=== PATIENT | male | born 1950 | race Caucasian/White ===

== ENCOUNTER → 2016-08-05 | Outpatient (CLI) | payer OTHER, BC ==
[~2016-08-05] MED LIST: ASPEC325 PO; CRD4 PO
[2016-08-05 17:42] LABS: BASO % 0.7 %; BASO ABS # 0.03 K/uL (0-0.2); COMPLETE YES; EOS % 0.9 %; HEMATOCRIT 39.5 % (42-52); IG% 0.2 %; LYMPH % 32.7 %; LYMPH ABS # 1.43 K/uL (1.2-3.4); MEAN CORPUSCULAR HEMOGLOBIN 31.3 pg (25-34); MEAN CORPUSCULAR HGB CONC 34.4 g/dl (32-36); MEAN PLATELET VOLUME 9.7 fL (7.4-10.4); MONO % 6.6 %; NEUT % 58.9 %; PLATELET COUNT 203 K/uL (130-400); RED BLOOD COUNT 4.34 M/uL (4.7-6.1); WHITE BLOOD COUNT 4.37 K/uL (4.8-10.8)
[2016-08-05 18:07] LABS: ALT/SGPT 22 U/L (12-78); AST/SGOT 14 U/L (15-37); BLOOD UREA NITROGEN 18 mg/dl (7-18); BUN/CREATININE RATIO 20.2 (10-20); CALCIUM 8.7 mg/dl (8.5-10.1); CARBON DIOXIDE 33 mmol/L (21-32); CHLORIDE 107 mmol/L (98-107); CREATININE 0.87 mg/dl (0.60-1.40); GLUCOSE 94 mg/dl (70-99); POTASSIUM 3.8 mmol/L (3.5-5.1); SODIUM 142 mmol/L (136-145)
[2016-08-05 18:09] LABS: ALB/GLOB RATIO 1.2 (0.9-2); ALKALINE PHOSPHATASE 75 U/L (45-117)
== END | disposition home or self-care (01) ==
LOC: C.LAB1850 17:19
PROVIDERS: ATTEND Internal Medicine
DX: R53.83 Other fatigue (principal); J02.9 Acute pharyngitis, unspecified; Z11.59 Encounter for screening for other viral diseases; E55.9 Vitamin D deficiency, unspecified; E53.8 Deficiency of other specified B group vitamins

== ENCOUNTER → 2017-07-14 | Outpatient (CLI) | payer OTHER, BC ==
--- NOTE | 2017-07-14 12:03 | DIAGNOSTIC IMAGING REPORT ---
FUSION CT SINUSES W/O HISTORY: 67 years-old Male J32.9 Chronic sinusitisPATIENT HAS YEAR HX OF CHRONIC SINUSITIS COMPARISON: Brain MRI 07/13/2009 TECHNIQUE: Multiple axial CT images of the paranasal sinuses were obtained without IV contrast. Axial Medtronic images were also submitted. A dose lowering technique was used consistent with the principals of HOANG. FINDINGS: Mild brain atrophy. No acute intracranial abnormality identified. Previously questioned meningioma of the right middle cranial fossa is not seen. The orbits and soft tissues are unremarkable. No pathologic-appearing adenopathy. Degenerative changes of the imaged cervical spine are noted. No calvarial fracture. Mastoid air cells and middle ear cavities appear clear. Minimal mucosal thickening of the maxillary, inferior frontal and bilateral sphenoid sinuses. Mild mucosal thickening involves the anterior and posterior ethmoid air cells. Moderate mucosal thickening involves the anterior bilateral nasal turbinates. Minimal leftward bowing and spurring of the nasal septum. The nasopharynx appears patent. No large dawn bullosa identified. No Cain cell. Patency with mild mucosal thickening of the bilateral maxillary ostiomeatal units. The bilateral frontoethmoidal and sphenoethmoidal recesses are patent. Elizabeth javan appears normal. IMPRESSION: 1. Mild paranasal sinus disease as above with patency of the bilateral maxillary ostiomeatal units. 2. Moderate mucosal thickening of the bilateral anterior nasal turbinates. The above report was generated using voice recognition software. It may contain grammatical, syntax or spelling errors. Electronically signed by: Ambrose Muniz M.D. 07/14/2017 12:02 PM Dictated Date/Time: 07/14/2017 11:56 AM
== END | disposition home or self-care (01) ==
LOC: C.CTS 11:46
PROVIDERS: ATTEND Physician Assistant
DX: J32.9 Chronic sinusitis, unspecified (principal)

== ENCOUNTER → 2017-07-22 | Outpatient (CLI) | payer OTHER, BC | END | disposition home or self-care (01) | LOC: C.LABSPEC 16:59 | PROVIDERS: ATTEND Physician Assistant | DX: J32.9 Chronic sinusitis, unspecified (principal) ==

== ENCOUNTER → 2017-08-07 | Outpatient (CLI) | payer OTHER, BC ==
[2017-08-07 14:49] LABS: BASO % 0.8 %; BASO ABS # 0.03 K/uL (0-0.2); EOS % 1.4 %; EOS ABS # 0.05 K/uL (0-0.5); HEMATOCRIT 41.1 % (42-52); HEMOGLOBIN 13.4 g/dL (14.0-18.0); IG# 0.01 K/uL (0.00-0.02); LYMPH % 32.5 %; LYMPH ABS # 1.15 K/uL (1.2-3.4); MEAN CELL VOLUME 91.5 fL (80-100); MEAN CORPUSCULAR HEMOGLOBIN 29.8 pg (25-34); MEAN CORPUSCULAR HGB CONC 32.6 g/dl (32-36); MEAN PLATELET VOLUME 9.8 fL (7.4-10.4); MONO % 8.8 %; MONO ABS # 0.31 K/uL (0.11-0.59); NEUT % 56.2 %; NEUT ABS # 1.99 K/uL (1.4-6.5); PLATELET COUNT 195 K/uL (130-400); RED CELL DISTRIBUTION WIDTH CV 13.7 % (11.5-14.5); RED CELL DISTRIBUTION WIDTH SD 45.7 fL (36.4-46.3); WHITE BLOOD COUNT 3.54 K/uL (4.8-10.8)
[2017-08-07 15:27] LABS: ALBUMIN 3.7 gm/dl (3.4-5.0); ALT/SGPT 22 U/L (12-78); AST/SGOT 14 U/L (15-37); BLOOD UREA NITROGEN 23 mg/dl (7-18); CALCIUM 8.4 mg/dl (8.5-10.1); CARBON DIOXIDE 30 mmol/L (21-32); CREATININE 0.93 mg/dl (0.60-1.40); GLUCOSE 91 mg/dl (70-99); POTASSIUM 3.9 mmol/L (3.5-5.1); SODIUM 138 mmol/L (136-145)
[2017-08-07 15:38] LABS: ALKALINE PHOSPHATASE 63 U/L (45-117); CHOLESTEROL 158 mg/dl (0-200); LDL CHOLESTEROL CALCULATED 97 mg/dl; TOTAL PROTEIN 6.8 gm/dl (6.4-8.2)
== END | disposition home or self-care (01) ==
LOC: C.LAB 13:51
PROVIDERS: ATTEND Internal Medicine
DX: J34.89 Other specified disorders of nose and nasal sinuses (principal); E55.9 Vitamin D deficiency, unspecified; E53.8 Deficiency of other specified B group vitamins; I10 Essential (primary) hypertension

== ENCOUNTER → 2017-08-14 | Outpatient (CLI) | payer OTHER, BC ==
--- NOTE | 2017-08-14 15:42 | DIAGNOSTIC IMAGING REPORT ---
KUB CLINICAL HISTORY: 67 years-old Male presenting with N20.0 Kidney stone on right [id number]. TECHNIQUE: Single supine view of the abdomen was obtained. COMPARISON: CT from 09/23/2011 and plain radiograph from 2007. FINDINGS: Nonobstructive bowel gas pattern. No gross pneumoperitoneum. And bowel gas projects over the left inguinal region possibly indicating a large hernia. 2 punctate calcifications project over the lower pole of the right kidney suggesting renal calculi. No radiographic evidence of left renal or ureteral calculi allowing for bowel gas and stool. Stable distribution of pelvic phleboliths. Mild degenerative changes of the right hip. Lung bases clear. IMPRESSION: 1. 2 punctate right renal calculi. No radiographic evidence of left renal or ureteral calculi. 2. Possible bowel containing large left inguinal hernia. Correlate clinically. Electronically signed by: Andrea Molina M.D. 08/14/2017 3:41 PM Dictated Date/Time: 08/14/2017 3:38 PM
== END ==
LOC: C.RAD 14:21
PROVIDERS: ATTEND Internal Medicine
DX: N20.0 Calculus of kidney (principal)

== ENCOUNTER → 2017-11-11 | Outpatient (CLI) | payer OTHER, BC ==
[2017-11-11 15:28] LABS: BASO % 0.8 %; BASO ABS # 0.03 K/uL (0-0.2); EOS % 1.1 %; EOS ABS # 0.04 K/uL (0-0.5); HEMATOCRIT 41.2 % (42-52); HEMOGLOBIN 13.6 g/dL (14.0-18.0); IG# 0.01 K/uL (0.00-0.02); LYMPH % 28.5 %; LYMPH ABS # 1.01 K/uL (1.2-3.4); MEAN CELL VOLUME 92.4 fL (80-100); MEAN CORPUSCULAR HEMOGLOBIN 30.5 pg (25-34); MEAN PLATELET VOLUME 10.1 fL (7.4-10.4); MONO % 7.9 %; MONO ABS # 0.28 K/uL (0.11-0.59); NEUT % 61.4 %; NEUT ABS # 2.17 K/uL (1.4-6.5); PLATELET COUNT 209 K/uL (130-400); RED CELL DISTRIBUTION WIDTH CV 13.6 % (11.5-14.5); RED CELL DISTRIBUTION WIDTH SD 46.2 fL (36.4-46.3); WHITE BLOOD COUNT 3.54 K/uL (4.8-10.8)
== END | disposition home or self-care (01) ==
LOC: C.LAB 14:19
PROVIDERS: ATTEND Internal Medicine
DX: J32.9 Chronic sinusitis, unspecified (principal)

== ENCOUNTER 2024-02-22 21:06 | Inpatient (IN) ==
--- NOTE | 2024-02-22 22:20 | Emergency Department Note ---
History of Present Illness General Chief complaint: Unable to Void Stated complaint: NON VOIDING, BLOOD IN URINE, ABD PAIN Time Seen by Provider: 02/22/24 21:37 History of Present Illness This 73-year-old male with a chronic indwelling Duff presents ER complaining of the Duff not draining and has blood in it. Patient states he had problems with the Duff this morning and stopped at [facility] and they changed out the Duff. Since then nothing besides blood is been draining out. Patient complains of bladder fullness. Patient denies blood thinners, flank pain, fevers, vomiting. He follows with [facility] urology. Home Medications Medication Instructions Recorded Confirmed Type buspirone 5 mg tablet 5 mg PO BID PRN anxiety #30 tabs 08/26/22 10/28/23 Rx finasteride 5 mg tablet 5 mg PO DAILY #90 tabs 05/26/23 10/28/23 Rx fluticasone propionate 50 1 spray intranasal DAILY PRN 07/01/23 10/28/23 History mcg/actuation nasal Congestion spray,suspension (Flonase Allergy Relief) multivitamin 1 tab PO DAILY 07/01/23 10/28/23 History doxazosin 4 mg tablet 4 mg PO QPM #90 tabs 10/05/23 10/28/23 Rx ciprofloxacin HCl 500 mg tablet 500 mg PO BID 7 days #14 tabs 02/04/24 Rx Allergies Allergy/AdvReac Type Severity Reaction Status Date / Time prednisolone AdvReac Intermediate CHEST PAIN Verified 10/28/23 14:31 "FELT LIKE HAVING A HEART ATTACK". sulfamethoxazole AdvReac Intermediate MUSCLE Verified 10/28/23 14:31 [From Bactrim] WEAKNESS trimethoprim [From Bactrim] AdvReac Intermediate MUSCLE Verified 10/28/23 14:31 WEAKNESS Past Med/Surg History Problem List (Updated 02/22/24 @ 23:17 by Prema Ann PA-C) Hematuria (Acute) Acute urinary retention (Acute) Duff catheter in place Urinary retention Hyperpigmentation of skin Left shoulder pain Elevated PSA Health care maintenance Allergic rhinitis (Chronic) Anxiety (Chronic) Benign prostatic hyperplasia (Chronic) Bilateral sensorineural hearing loss (Chronic) Cervical radiculopathy (Chronic) Chronic sinusitis (Chronic) Essential hypertension (Chronic) Hypertrophy of both inferior nasal turbinates (Chronic) Kidney stone on right side (Chronic) Left facial pressure and pain (Chronic) Mitral valve regurgitation (Chronic) Nasal septal deviation (Chronic) 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) Sleep disturbance (Chronic) Systolic murmur (Chronic) Tiredness (Chronic) Vitamin B12 deficiency (Chronic) Vitamin D deficiency disease (Chronic) Medical History Right elbow tendinitis Nasal congestion Shoulder pain, bilateral Prostatitis, chronic Pelvic pain in male Stomach pain Femoral hernia of right side Right shoulder pain Range joint movement reduced Skin lesion of scalp UTI (urinary tract infection) Fullness of abdomen Hernia, inguinal, left Surgical History H/O sinus surgery H/O hernia repair Family History Mother Cancer Colon cancer Hypertension Lung cancer Breast cancer Colorectal cancer Myocardial infarction Father Congenital heart disease Diabetes Heart disease Hypertension Osteoarthritis Hearing loss Myocardial infarction Denies family history of Ovarian cancer Prostate cancer Social History Smoking Status: Never smoker Second Hand Exposure: Yes; Do You Dip or Chew Tobacco: No; Hx Alcohol Use: No Hx Substance Use: No Preferred Language: [place] Visual Impairment: No Limitations Hearing Ability: Normal marital status: Single Current Living Situation: Alone current occupational status: employed Feels Safe at Home: Yes Childhood Exposure to Second-Hand Smoke: Yes Dental Care, Regularly: Yes Physical Activity Frequency: Does not Exercise Seatbelt Use: always Sunscreen Use: Yes Review of Systems A total of 10 systems reviewed and were otherwise negative Physical Exam Vital Signs Vital Signs - 24 hr 02/22/24 21:11 02/22/24 21:32 02/22/24 23:54 Temperature 36.8 C Temperature Source Temporal Artery Scan Pulse Rate 79 64 Pulse Rate [Apical] 60 Pulse Rhythm [Apical] Regular Pulse Strength [Apical] Normal Respiratory Rate 15 18 Respiratory Effort / Characteristics Non-Labored Spontaneous Respiratory Depth Normal Respiratory Pattern Regular Blood Pressure 175/84 H Blood Pressure [Right Arm] 137/70 Blood Pressure Mean 114 Blood Pressure Mean [Right Arm] 92 Blood Pressure Position [Right Arm] Semi-fowlers Pulse Oximetry 97 98 Oxygen Delivery Method Room Air Room Air Sepsis Recent Fever Within 48 Hours No Sepsis New/Unexplained Change in Mental Status No Sepsis Action Taken by Nursing No Action Required VITALS: Vitals are noted on the nurse's note and reviewed by myself. Vital signs stable. GENERAL: Pleasant gentleman, in no acute distress, nondiaphoretic, well- developed well-nourished. SKIN: Capillary reflex less than 2 seconds. HEENT: Normocephalic. PERRLA. EOMI. Nares patent. Mucous membranes moist. Neck is supple without nuchal rigidity. HEART: Regular rate and rhythm LUNGS: Clear to auscultation bilaterally without wheezes, rales or rhonchi. No retractions or accessory muscle use. ABDOMEN: Positive bowel sounds x 4. Normal tympanic percussion. Soft, distended bladder, nontender, without masses or organomegaly. Ledezma sign negative. No guarding or rebound tenderness. no CVA tenderness exam: Duff in place with blood in the catheter. This was irrigated by nursing. MUSCULOSKELETAL: No gross musculoskeletal defects. NEURO: Patient was alert and oriented to person place and time. No focal neurological deficits. Course Administered Medications Discontinued Medications Lidocaine HCl (Lidocaine 2% Jelly 5 Ml Tube) Confirm Administered Dose 5 ml EXT .K-MED ONE Stop: 02/22/24 23:31 Last Admin: 02/23/24 00:05 Dose: 5 ml Documented By: TREVOR Medical Decision Making Medical Records Attestation: I reviewed the patient's medical records. Home Medications Current Medication List: was personally reviewed by me Laboratory Data Attestation: I reviewed the patient's lab results. 02/22/24 23:45 02/22/24 23:45 Lab Results 02/22/24 02/22/24 Range/Units 22:00 23:45 WBC 7.67 (4.8-10.8) K/ul RBC 3.79 L (4.70-6.10) M/uL Hgb 11.6 L (14.0-18.0) g/dl Hct 34.9 L (42.0-52.0) % MCV 92.1 (80.0-100.0) fL MCH 30.6 (25.0-34.0) pg MCHC 33.2 (32.0-36.0) g/dL RDW Std Deviation 47.4 H (36.4-46.3) fL RDW Coeff of Adve 14.0 (11.5-14.5) % Plt Count 234 (130-400) K/uL MPV 10.1 (9.4-12.4) fL Immature Gran % (Auto) 0.1 % Neut % (Auto) 73.0 % Lymph % (Auto) 18.9 % [place] % (Auto) 6.6 % Eos % (Auto) 0.9 % Baso % (Auto) 0.5 % Neut # (Auto) 5.59 (1.40-6.50) K/uL Lymph # (Auto) 1.45 (1.20-3.40) K/uL [place] # (Auto) 0.51 (0.11-0.59) K/uL Eos # (Auto) 0.07 (0.00-0.50) K/uL Baso # (Auto) 0.04 (0.00-0.20) K/uL Immature Gran # (Auto) 0.01 (0.01-0.20) K/uL Sodium 140 (136-145) mmol/L Potassium 3.9 (3.5-5.1) mmol/L Chloride 107 (98-107) mmol/L Carbon Dioxide 27 (21-32) mmol/L Anion Gap 6 (3-11) BUN 19 (6-23) mg/dl Creatinine 0.86 (0.6-1.4) mg/dl Est Cr Clr Drug Dosing 60.8 ml/min eGFR 90.30 BUN/Creatinine Ratio 22.1 H (10-20) Glucose 98 (70-99(Fasting)) mg/dl Calcium 8.8 (8.6-10.3) mg/dl Total Bilirubin 0.6 (0.2-1.0) mg/dl AST 18 (13-39) U/L ALT 13 (7-52) U/L Alkaline Phosphatase 55 (34-104) U/L Total Protein 6.1 (6.0-8.3) gm/dl Albumin 3.7 (3.4-5.0) gm/dl Globulin 2.4 L (2.5-4.0) gm/dl Albumin/Globulin Ratio 1.5 (0.9-2) Urine Color See Comment Urine Appearance Turbid A (Clear) Urine pH Not Reportable Ur Specific [place] 1.014 (1.000-1.030) Urine Protein Not Reportable Urine Glucose (UA) Not Reportable Urine Ketones Not Reportable Urine Blood Not Reportable Urine Nitrite Not Reportable Urine Bilirubin Not Reportable Urine Urobilinogen Not Reportable Ur Leukocyte Esterase Not Reportable Urine RBC >20 H (0-2) /hpf Urine WBC 6-10 H (0-5) /hpf Ur Epithelial Cells 0-2 (0-2) /hpf Urine Bacteria None Seen (None Seen) MDM Narrative Prior records reviewed and summarized as above. Triage Nursing notes reviewed. Additional history obtained from nursing. The patient's history was concerning for problems with the Duff catheter Differential diagnosis: Etiologies such as UTI, urinary retention, Duff malfunction, as well as others were entertained.. Physical examination: As above ER treatment provided: Duff was irrigated by nursing Patient continued to bleed so CBI was initiated. Unasyn was ordered off of prior urine culture On reassessment the patient felt better. Diagnostics interpreted by me: The labs Independently Interpreted by myself revealed mild anemia. Urine with hematuria with no obvious signs of infection. Prior culture was reviewed [address], [place] [address] / Director: Payal Velásquez M.D. Clinical Laboratory Report Name: MARYA JEFFERSON Acct: [id number] Status: CAROLYNN CHESTER : 1950 [facility] Date: Age: 73 Sex: M Dis Date: Loc: Laboratory Main [place] Spec: [id number] Collected: 02/17/24 Received: 02/17/[address]: Adriana Tatum CRNP Source: Urine,Random OV Order: Ordered: Urine Culture Procedure Result Verified Site Urine Culture Final 02/19/24-1605 Organism 1 Enterococcus faecalis [place] Count >100,000 CFU/ml Sens Sensitivities to Follow E faecalis RX M.I.C. --- --------- Ampicillin S <=2 Ciprofloxacin I 2 Daptomycin S 2 Gent Synergy S <=500 Levofloxacin S 2 Nitrofurantoin S <=32 Penicillin S 1 Strep Synergy S <=1000 Tetracycline S <=4 Vancomycin S 2 Enterococcus faecalis: Positive HERI 38 Streptomycin Synergy Screen S Gentamicin Synergy Screen S S = SENSITIVE I = INTERMEDIATE R = RESISTANT Consultation: A consultation was placed with the hospitalist. The case was discussed and diagnostics were reviewed. The patient was evaluated in the ER for further treatment. This appears to be persistent hematuria despite irrigation. Patient continued to bleed and the Duff was clogged off. Medicine was consulted and will evaluate the patient. Urology midlevel was consulted and will evaluate the patient. Patient was admitted to the medical service. He was started on antibiotics. Prior urine culture was reviewed. He is agreeable treatment plan of admission. By the evaluation outlined above emergent etiologies such as pyelonephritis as well as others were deemed relatively unlikely. The pt informed about the findings as listed above. All questions were answered and pleased with the treatment. The chart was completed utilizing [employer] Speech voice recognition software. Grammatical errors, random word insertions, pronoun errors, and incomplete sentences are an occassional consequence of this system due to software limitations, ambient noise, and hardware issues. Any formal questions or concerns about the content, text, or information contained within the body of this dictation should be directly addressed to the physician clinical research assistant for clarification. Attending Attestation: I Danny Bueno MD I have reviewed the advanced practitioner's documentation and agree with the plan of care. I accept the responsibility for the associated risk of managing the patient. I performed a substantive portion of the visit including involvement in all aspects of medical decision making. Given recurring clotting and hematuria trials of irrigation, will bring in for further observation. Overnight urology physician clinical research assistant has been contacted to evaluate the patient. Given the patient's instrumentation will cover the dose of antibiotics pending urine culture from today based on last urine culture in the system from the . Impression & Plan Acute urinary retention, Hematuria Discharge Plan Visit Data Chief Complaint: Unable to Void Stated Complaint: NON VOIDING, BLOOD IN URINE, ABD PAIN ED Provider: Danny Bueno ED Midlevel Provider: Prema Ann Discharge Problem: Acute urinary retention, Hematuria Patient Disposition: Being Evaluated by Hospitalist Condition: Good Discharge Instructions Nohemi/Other Patient Handouts: ED Duff Catheter, Care Forms Stand Alone Forms: Important Visit Information Prescriptions Prescriptions: No Action doxazosin 4 mg tablet 4 mg PO QPM Qty: 90 3RF ciprofloxacin HCl 500 mg tablet 500 mg PO BID 7 Days Qty: 14 0RF finasteride 5 mg tablet 5 mg PO DAILY Qty: 90 3RF buspirone 5 mg tablet 5 mg PO BID PRN (Reason: anxiety) Qty: 30 0RF multivitamin Tablet 1 tab PO DAILY fluticasone propionate [Flonase Allergy Relief] 50 mcg/actuation spray,suspension 1 spray intranasal DAILY PRN (Reason: Congestion) Rx Instructions: administer into each nostril Referrals Referrals: [place] Baez MD [Primary Care Provider] -
[2024-02-22 22:36] LABS: Appearance Urine Turbid (Clear); Specific Gravity Urine 1.014 (1.000-1.030)
[2024-02-22 22:38] LABS: Epithelial Cell Urine 0-2 /hpf (0-2); RBC Urine >20 /hpf (0-2)
[2024-02-22 22:40] LABS: Bacteria Urine None Seen (None Seen)
[2024-02-23 00:01] LABS: Basophils # (auto) 0.04 K/uL (0.00-0.20); Basophils % (auto) 0.5 %; Eosinophils # (auto) 0.07 K/uL (0.00-0.50); Eosinophils % (auto) 0.9 %; Hematocrit (blood only) 34.9 % (42.0-52.0); Hemoglobin 11.6 g/dl (14.0-18.0); Immature Granulocytes # (auto) 0.01 K/uL (0.01-0.20); Immature Granulocytes % (auto) 0.1 %; Lymphocytes # (auto) 1.45 K/uL (1.20-3.40); Lymphocytes % (auto) 18.9 %; Mean Corpuscular Hemoglobin 30.6 pg (25.0-34.0); Mean Corpuscular Hgb Conc 33.2 g/dL (32.0-36.0); Mean Corpuscular Volume 92.1 fL (80.0-100.0); Mean Platelet Volume 10.1 fL (9.4-12.4); Monocytes # (auto) 0.51 K/uL (0.11-0.59); Monocytes % (auto) 6.6 %; Neutrophils # (auto) 5.59 K/uL (1.40-6.50); Platelet Count 234 K/uL (130-400); RDW Standard Deviation 47.4 fL (36.4-46.3); Red Blood Count 3.79 M/uL (4.70-6.10); White Blood Count 7.67 K/ul (4.8-10.8)
[2024-02-23] MEDS: LIDOCAINE 2% JELLY 5 ML TUBE EXT ONE (00:05)
[2024-02-23 00:17] LABS: Albumin Globulin Ratio 1.5 (0.9-2); Albumin Level 3.7 gm/dl (3.4-5.0); BUN Creatinine Ratio 22.1 (10-20); Bilirubin,Total 0.6 mg/dl (0.2-1.0); Calcium 8.8 mg/dl (8.6-10.3); Creatinine Clr Calc Pharmacy 60.8 ml/min; Globulin 2.4 gm/dl (2.5-4.0); Potassium 3.9 mmol/L (3.5-5.1); Total Protein 6.1 gm/dl (6.0-8.3)
--- NOTE | 2024-02-23 00:41 | History & Physical Report ---
Date of Service February 23, 2024 Assessment & Plan (1) Hematuria: Plan: Pt is a 73 yo male with PMH of BPH (requiring chronic terrazas cath since Apr 2023) and anxiety presenting to the hospital d/t concerns with his terrazas catheter. Hematuria - suspect secondary to trauma from terrazas replacement; pt not on blood thinners at home - lab work significant for no leukocytosis, Hgb 11.6, CMP WNL - pt with previous urine culture 02/16 growing pansensitive enterococcus (except for cipro); pt given unasyn in ED- will continue on admission - will trend Hgb - will continue home finasteride 5 mg daily and doxazosin 4 mg daily (or formulary equivalent) - urology consulted for further evaluation and management Anxiety - continue buspirone 5 mg BID PRN Diet: NPO VTE ppx: defer in setting of hematuria Code: full Dispo: admit to med/surg (2) Terrazas catheter in place: (3) Anxiety: History of Present Illness Chief Complaint: urinary catheter concerns Primary Care Provider: [place] Baez MD Pt is a 73 yo male with PMH of BPH (requiring chronic terrazas cath since Apr 2023) and anxiety presenting to the hospital d/t concerns with his terrazas catheter. Pt was on his way home from [place] today when his terrazas stopped draining. He stopped at an outside ER where his terrazas was irrigated and replaced with subsequent proper drainage. Pt then noted blood in his catheter bag a few hours later. He has not had any prior issues with his catheter which has been in place since Apr/ urinary retention secondary to BPH- his catheter is typically changed monthly with [facility] urology. He previously saw a doctor with [facility] for tx of his prostate but he notes this doc went on medical leave and he has not had any other evaluation in terms of definitive tx. In the ER, his catheter was irrigated. Pt was also given unasyn x1. Allergies Allergy/AdvReac Type Severity Reaction Status Date / Time prednisolone AdvReac Intermediate CHEST PAIN Verified 10/28/23 14:31 "FELT LIKE HAVING A HEART ATTACK". sulfamethoxazole AdvReac Intermediate MUSCLE Verified 10/28/23 14:31 [From Bactrim] WEAKNESS trimethoprim [From Bactrim] AdvReac Intermediate MUSCLE Verified 10/28/23 14:31 WEAKNESS Home Medications Medication Instructions Recorded Confirmed Type buspirone 5 mg tablet 5 mg PO BID PRN anxiety #30 tabs 08/26/22 10/28/23 Rx finasteride 5 mg tablet 5 mg PO DAILY #90 tabs 05/26/23 10/28/23 Rx fluticasone propionate 50 1 spray intranasal DAILY PRN 07/01/23 10/28/23 History mcg/actuation nasal Congestion spray,suspension (Flonase Allergy Relief) multivitamin 1 tab PO DAILY 07/01/23 10/28/23 History doxazosin 4 mg tablet 4 mg PO QPM #90 tabs 10/05/23 10/28/23 Rx ciprofloxacin HCl 500 mg tablet 500 mg PO BID 7 days #14 tabs 02/04/24 Rx Past Med/Surg History Problem List Hematuria (Acute) Acute urinary retention (Acute) Terrazas catheter in place Urinary retention Hyperpigmentation of skin Left shoulder pain Elevated PSA Health care maintenance Allergic rhinitis (Chronic) Anxiety (Chronic) Benign prostatic hyperplasia (Chronic) Bilateral sensorineural hearing loss (Chronic) Cervical radiculopathy (Chronic) Chronic sinusitis (Chronic) Essential hypertension (Chronic) Hypertrophy of both inferior nasal turbinates (Chronic) Kidney stone on right side (Chronic) Left facial pressure and pain (Chronic) Mitral valve regurgitation (Chronic) Nasal septal deviation (Chronic) 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) Sleep disturbance (Chronic) Systolic murmur (Chronic) Tiredness (Chronic) Vitamin B12 deficiency (Chronic) Vitamin D deficiency disease (Chronic) Medical History Right elbow tendinitis Nasal congestion Shoulder pain, bilateral Prostatitis, chronic Pelvic pain in male Stomach pain Femoral hernia of right side Right shoulder pain Range joint movement reduced Skin lesion of scalp UTI (urinary tract infection) Fullness of abdomen Hernia, inguinal, left Surgical History H/O sinus surgery H/O hernia repair Family History Mother Cancer Colon cancer Hypertension Lung cancer Breast cancer Colorectal cancer Myocardial infarction Father Congenital heart disease Diabetes Heart disease Hypertension Osteoarthritis Hearing loss Myocardial infarction Denies family history of Ovarian cancer Prostate cancer Social History Smoking Status: Never smoker Second Hand Exposure: Yes; Do You Dip or Chew Tobacco: No; Hx Alcohol Use: No Hx Substance Use: No Preferred Language: Senegalese Visual Impairment: No Limitations Hearing Ability: Normal marital status: Single Current Living Situation: Alone current occupational status: employed Feels Safe at Home: Yes Childhood Exposure to Second-Hand Smoke: Yes Dental Care, Regularly: Yes Physical Activity Frequency: Does not Exercise Seatbelt Use: always Sunscreen Use: Yes Review of Systems Review of Systems: As per HPI Physical Exam Constitutional: NAD, vitals WNL. Eyes: Conjunctivae normal. Respiratory: CTA bilaterally. Non labored breathing. No rhonchi, wheezing, or crackles. Cardiovascular: RRR. No murmurs noted. No LE edema. Gastrointestinal (Abdomen): Tender in RLQ, +BS. No masses noted. Skin: No rashes or skin lesions noted. Neurologic: Sensation grossly intact. No FND appreciated. Psychiatric: Speech of normal pace and content. Mood and affect congruent. Results & Data Results & Data Vital Signs (Past 12 Hours) Vital Signs Temp Pulse Pulse Resp BP BP Pulse Ox 02/22/24 23:54 60 18 137/70 98 02/22/24 21:32 64 02/22/24 21:11 36.8 C 79 15 175/84 H 97 O2 Del Method 02/22/24 23:54 Room Air 02/22/24 21:32 02/22/24 21:11 Room Air Supervising Physician Co-Signing Physician Notes Patient seen and examined, chart reviewed case discussed with Dr. Kaur and I agree with the assessment and plan as above. In brief, patient is a 73yo male with history of BPH with chronic, indwelling Terrazas since April 2023. Patient developed hematuria over the weekend then his catheter stopped draining - he went to an outside facility and had his catheter exchanged with some difficulty. Has had ongoing hematuria with retention. In the ER pateint had bladder scan which revealed 500mL urine present. CBI x 3L performed - still with hematuria, occasional clots. Terrazas has been hand irrigated as well with improvement. On exam he was resting comfortably, Terrazas in place Skin - no rash HEENT - MMM, Neck supple Heart - +S1/S2, regular Lungs - CTA Abd - +BS, soft, NT/ND Ext- warm, well perfused Labs and images reviewed HGB=11.6, HCT=34.9 Platelets, coagulation panel and BUN/Cr WNL Assessment/Plan 73yo male with history of BPH, chronic, indwelling Terrazas presenting with gross hematuria. Possible infection vs bladder irritation -Continue Finasteride and Doxazosin -Monitor UOP, hand irrigation if needed -Urology consultation appreciated -Monitor H/H -Continue Unasyn -Follow cultures -Tylenol PRN -Remainder as above Resident Activity Tracking Resident Involvement: Resident Care Provided Care Provided: Adult Hospital Medicine
[2024-02-23] MEDS ORDERED: ONDANSETRON INJ 2 MG/ML 2 ML VIAL IV PRN (01:08)
[2024-02-23] MEDS ORDERED: MELATONIN 3 MG TAB PO PRN (01:08)
[2024-02-23] MEDS ORDERED: ACETAMINOPHEN 325 MG TAB PO PRN (01:08)
[2024-02-23] MEDS ORDERED: POLYETHYLENE (MIRALAX) 17 GM PACK PO PRN (01:08)
--- NOTE | 2024-02-23 01:10 | Urology Consultation ---
Date of Consultation February 23, 2024 Assessment & Plan (1) Hematuria: I discussed with the treating clinician the emergency department the patient is being admitted on the hospitalist service from urologic perspective we recommend the following: Is unclear whether the patient is experiencing hematuria. Possibilities include irritation of the bladder from the existing catheter, underlying infectious etiology, or intermittent urinary retention causing surface capillary/blood vessels on the bladder surface to bleed Treating clinician the emergency department has initiated antibiotics in form of Unasyn in case any infectious processes at play and this should continue with As noted in the history of present illness continuous bladder irrigation has been employed in this modality should continue Would recommend following serial labs; coagulation studies has not been checked so I have ordered these Would recommend keeping the patient n.p.o. for the present time. [facility] and a determination will be made at that time if patient will require any further procedure intervention If patient's Duff catheter becomes clogged manual flushing/irrigation can be employed in addition to his continuous bladder irrigation Additional recommendations be forthcoming based on his clinical course as it unfolds History of Present Illness Reason for Consultation: Hematuria History of Present Illness This is a 73-year-old male with a history of chronic urinary retention secondary to enlarged prostate. The patient notes that he has a chronic indwelling Duff catheter that is changed monthly and this is done locally [facility] urology office. The patient notes that his most recent catheter exchange was on 01/21/2024 and was performed without difficulty. The patient notes that he was at the [facility] this past weekend. He says that he was ambulating a great deal approximately 3 days ago when he noticed luther hematuria from his Duff catheter. The patient does note a 1 point the Duff catheter stopped draining and since he was out of town he went to an outside hospital where they exchanged his Duff. When this was performed he notes that they had some difficulty and they had to exchange his Duff catheter twice. The patient does note that he continues to have hematuria and at times he felt as though his bladder was not emptying so he presented to the hospital [facility]. Since arrival to [facility] he has had labs performed which independently reviewed. Chemistry profile showed sodium and potassium as well as the BUN to creatinine were normal. CBC revealed white blood cell count platelet count were normal. His hemoglobin and hematocrit were 11.6 and 34.9. Urinalysis showed 6-10 white blood cells per high-power field but there were otherwise no other markers indicative of infection. Patient did have continued hematuria while at the emergency department [facility]. I did discuss with the nurses attending the patient and patient's catheter clotted off several times and is therefore elected for patient to have a three-way Duff catheter placed. I did discuss with the nurse attending the patient notes that the three-way Duff catheter was placed without difficulty. They have since initiated continuous bladder irrigation and the patient notes relief of any symptomatology. At the present time he denies any back or flank pain. He denies any abdominal pain or suprapubic discomfort and does not feel as though his bladder is full and not emptying. He denies any fevers, shakes, or chills. He denies any lightheadedness or dizziness. Patient notes that he does not take any anticoagulants but does take an aspirin daily. At the time of my interview he was resting comfortably in bed and he was in no distress. Allergies Allergy/AdvReac Type Severity Reaction Status Date / Time prednisolone AdvReac Intermediate CHEST PAIN Verified 10/28/23 14:31 "FELT LIKE HAVING A HEART ATTACK". sulfamethoxazole AdvReac Intermediate MUSCLE Verified 10/28/23 14:31 [From Bactrim] WEAKNESS trimethoprim [From Bactrim] AdvReac Intermediate MUSCLE Verified 10/28/23 14:31 WEAKNESS Home Medications Medication Instructions Recorded Confirmed Type buspirone 5 mg tablet 5 mg PO BID PRN anxiety #30 tabs 08/26/22 10/28/23 Rx finasteride 5 mg tablet 5 mg PO DAILY #90 tabs 05/26/23 10/28/23 Rx fluticasone propionate 50 1 spray intranasal DAILY PRN 07/01/23 10/28/23 History mcg/actuation nasal Congestion spray,suspension (Flonase Allergy Relief) multivitamin 1 tab PO DAILY 07/01/23 10/28/23 History doxazosin 4 mg tablet 4 mg PO QPM #90 tabs 10/05/23 10/28/23 Rx ciprofloxacin HCl 500 mg tablet 500 mg PO BID 7 days #14 tabs 02/04/24 Rx Patient History Medical History Right elbow tendinitis Nasal congestion Shoulder pain, bilateral Prostatitis, chronic Pelvic pain in male Stomach pain Femoral hernia of right side Right shoulder pain Range joint movement reduced Skin lesion of scalp UTI (urinary tract infection) Fullness of abdomen Hernia, inguinal, left Surgical History H/O sinus surgery H/O hernia repair Family History Mother Cancer Colon cancer Hypertension Lung cancer Breast cancer Colorectal cancer Myocardial infarction Father Congenital heart disease Diabetes Heart disease Hypertension Osteoarthritis Hearing loss Myocardial infarction Denies family history of Ovarian cancer Prostate cancer Social History Smoking Status: Never smoker Second Hand Exposure: Yes; Do You Dip or Chew Tobacco: No; Hx Alcohol Use: No Hx Substance Use: No Preferred Language: Lithuanian Visual Impairment: No Limitations Hearing Ability: Normal marital status: Single Current Living Situation: Alone current occupational status: employed Feels Safe at Home: Yes Childhood Exposure to Second-Hand Smoke: Yes Dental Care, Regularly: Yes Physical Activity Frequency: Does not Exercise Seatbelt Use: always Sunscreen Use: Yes Review of Systems Review of Systems: All systems reviewed & are unremarkable except as noted in HPI & below Physical Exam Constitutional: WD/WN, vitals as above Eyes: no conjunctival abnormality Wears glasses ENMT: Ears: no hearing impairment and no external ear abnormality Mouth: no oropharynx abnormality Neck: trachea midline Respiratory: normal respiratory effort; no respiratory distress and no labored breathing Cardiovascular: Rate/Rhythm: regular rate and regular rhythm Gastrointestinal (Abdomen): Abdomen is soft and nondistended. There is no pain with palpation. There is no rebound tenderness, guarding, or signs of peritonitis. There is no suprapubic d iscomfort with palpation Musculoskeletal: No calf tenderness or lower extremity edema Skin: no rashes Neurologic: moves all extremities Psychiatric: A+Ox3, euthymic affect Genitourinary: At the present time the patient has a three-way Duff catheter in place with continuous bladder irrigation running. The output from the Duff catheter is ramos red urine/blood without any visible clots at the present time. The catheter appears to be patent and draining appropriately. Results & Data Vital Signs (Past 12 Hours) Vital Signs Temp Pulse Pulse Resp BP BP Pulse Ox 02/22/24 23:54 60 18 137/70 98 02/22/24 21:32 64 02/22/24 21:11 36.8 C 79 15 175/84 H 97 O2 Del Method 02/22/24 23:54 Room Air 02/22/24 21:32 02/22/24 21:11 Room Air PG Care Time/CCT Total # of Minutes Spent Total Time Spent with Patient: Total time spent is greater than 50% in coordination of care (as documented) at patient's floor/unit and/or counseling patient: Coding Level of Care Code 13319 INT INP/OBS CARE 3/75MIN Diagnoses Hematuria R31.9
[2024-02-23 01:26] LABS: INR 1.1 (0.9-1.1); Partial Thromboplastin Time 28 Seconds (21-31); Prothrombin Time 11.7 Seconds (9.0-12.0)
[2024-02-23] MEDS: AMPICILLIN/SULBACTAM SOD 1,500 MG/100 ML BAG IV STA (01:33)
[2024-02-23] MEDS ORDERED: busPIRone 5 MG TAB PO PRN (02:04)
--- NOTE | 2024-02-23 03:06 | Billing Data ---
Date of Service February 23, 2024 Coding Level of Care Code 78024 INT INP/OBS CARE
[2024-02-23 06:06] LABS: Basophils # (auto) 0.03 K/uL (0.00-0.20); Basophils % (auto) 0.5 %; Eosinophils % (auto) 1.8 %; Hematocrit (blood only) 33.7 % (42.0-52.0); Hemoglobin 11.3 g/dl (14.0-18.0); Immature Granulocytes # (auto) 0.02 K/uL (0.01-0.20); Immature Granulocytes % (auto) 0.4 %; Lymphocytes # (auto) 1.48 K/uL (1.20-3.40); Lymphocytes % (auto) 26.5 %; Mean Corpuscular Hemoglobin 30.7 pg (25.0-34.0); Mean Corpuscular Hgb Conc 33.5 g/dL (32.0-36.0); Mean Corpuscular Volume 91.6 fL (80.0-100.0); Mean Platelet Volume 10.2 fL (9.4-12.4); Monocytes # (auto) 0.47 K/uL (0.11-0.59); Monocytes % (auto) 8.4 %; Neutrophils # (auto) 3.48 K/uL (1.40-6.50); Neutrophils % (auto) 62.4 %; Platelet Count 220 K/uL (130-400); RDW Coefficient of Variation 14.1 % (11.5-14.5); RDW Standard Deviation 47.8 fL (36.4-46.3); Red Blood Count 3.68 M/uL (4.70-6.10); White Blood Count 5.58 K/ul (4.8-10.8)
[2024-02-23 06:16] LABS: BUN Creatinine Ratio 21.3 (10-20); Calcium 8.4 mg/dl (8.6-10.3); Creatinine Clr Calc Pharmacy 80.9 ml/min; Potassium 3.5 mmol/L (3.5-5.1)
--- NOTE | 2024-02-23 08:11 | Urology Progress Note ---
Date of Service February 23, 2024 Assessment & Plan (1) Hematuria: (2) UTI (urinary tract infection): Plan - Follow-up for gross hematuria - Pt afebrile and hemodynamically stable - Labs reviewed - Hemoglobin 11.3, Creatinine 0.80, WBC 5.58 - Urine culture pending. Urine culture 02/16 grew Enterococcus. On Unasyn. - 3-way Duff intact and draining pink tinged urine without clot on CBI moderate rate. Nursing hand irrigated this morning with removal of clot. - Continue to monitor urine output. Ok to hand irrigate as needed for clots/obstruction, retention, suprapubic pain. - Continue antibiotics and tailor per culture sensitivities - Will obtain a CT abd pelvis to assess for any clot within the bladder that may require further intervention - Keep NPO for now - Urology will follow along Admission and Anticipated Discharge Date Admission Date: February 23, 2024 Subjective Pt seen at bedside this AM Awake and resting in bed on arrival No acute distress Duff intact and draining pink tinged urine with CBI on moderate rate Nursing hand irrigated this morning with removal of clot He denies suprapubic pain/pressure Denies f/c/n/v Has been NPO Review of Systems Constitutional: as per Subjective / HPI Gastrointestinal: as per Subjective / HPI Genitourinary: + as per Subjective / HPI Physical Exam Constitutional: no acute distress Respiratory: no respiratory distress and no labored breathing Gastrointestinal (Abdomen): Inspection/Auscultation: abdomen not distended Percussion/Palpation: abdomen soft; abdomen nontender Neurologic: moves all extremities and awake Psychiatric: A+Ox3, euthymic affect Genitourinary: Duff intact and draining pink tinged urine with CBI Results & Data Vital Signs (Past 12 Hours) Vital Signs Temp Pulse Pulse Pulse Resp BP BP 02/23/24 07:35 36.5 C 84 18 188/86 H 02/23/24 03:15 36.7 C 63 18 02/23/24 01:29 60 02/23/24 01:00 61 18 02/22/24 23:54 60 18 02/22/24 21:32 64 02/22/24 21:11 36.8 C 79 15 175/84 H BP Pulse Ox O2 Del Method 02/23/24 07:35 94 Room Air 02/23/24 03:15 162/76 H 98 Room Air 02/23/24 01:29 02/23/24 01:00 126/87 96 Room Air 02/22/24 23:54 137/70 98 Room Air 02/22/24 21:32 02/22/24 21:11 97 Room Air PG Care Time/CCT Total # of Minutes Spent Total Time Spent with Patient: Total time spent is greater than 50% in coordination of care (as documented) at patient's floor/unit and/or counseling patient: Coding Level of Care Code 81408 SUB INP/OBS CARE 2/35MIN Diagnoses Hematuria R31.9 UTI (urinary tract infection) N39.0
[2024-02-23] MEDS: FINASTERIDE 5 MG TAB PO SCH (08:41)
[2024-02-23] MEDS: AMPICILLIN/SULBACTAM SOD 1,500 MG/100 ML BAG IV SCH (08:41)
--- NOTE | 2024-02-23 12:50 | CT Scan Report ---
CT OF THE ABDOMEN AND PELVIS WITHOUT CONTRAST CLINICAL HISTORY: Gross hematuria. COMPARISON STUDY: CT of the abdomen and pelvis September 23, 2011. Prostate MRI July 29, 2022. KUB February 02, 2024. TECHNIQUE: Axial images of the abdomen and pelvis were obtained without IV contrast. Images were revi ewed in the axial, sagittal, and coronal planes. Automated exposure control was utilized for the lorne dy. A dose lowering technique was utilized adhering to the principles of ALARA. FINDINGS: Lung bases are unremarkable. No pneumatosis, free air or portal venous gas is present. Ther e is no hydronephrosis. Dilatation of the distal bilateral ureters is similar to CT of September 23, 2011 a nd prostate MRI of July 29, 2022. 2 calcifications within lower pole of the right kidney measure up t o 4 mm. The larger calcification was present on prior CT of September 23, 2011. There are no ureteral calcu li. There are no bladder calculi. A Duff balloon within the bladder is present. There is moderate cl ot within the bladder. Moderate to marked enlargement of the prostate is again noted. The prostate in dents the base of the bladder. There is no abdominal or pelvic lymphadenopathy. Water attenuation lef t renal lesions favor cysts. An intermediate attenuation 2.7 cm segment 7 hepatic lesion on image 70 of 349 is unchanged since prior CT. This represents a hemangioma. A smaller adjacent lesion is also u nchanged. A 2.3 cm intermediate attenuation segment 4 lesion on image 97 is new since that exam. Ther e is no evidence for a bowel obstruction. The appendix is normal. There are no fluid collections. Tra ce fluid within the pelvis is present. There are postoperative findings from bilateral inguinal herni a repairs. IMPRESSION: 1. No ureteral calculi or hydronephrosis. Two small calcifications within the inferior right renal si nus which could represent nonobstructing calculi or vascular calcifications. 2. No change in dilatation of the distal ureters from prior exams. This is likely chronic. 3. Moderate clot within the bladder. An underlying bladder mass cannot be excluded but is not visuali zed on this study. Duff in place. Moderate to marked enlargement of the prostate which indents the b ase of the bladder. 4. 2.3 cm intermediate attenuation segment 4 hepatic lesion. This lesion is new since CT of September 22 012 but likely reflects a hemangioma. Nonemergent right upper quadrant ultrasound is recommended. The additional right hepatic lobe lesion was shown to represent a hemangioma on prior CT. ACT 112: Negative or not required by law. Electronically signed by: Ed Douglas M.D. 02/23/2024 12:48 PM
--- NOTE | 2024-02-23 18:16 | Hospitalist Progress Note ---
Date of Service February 23, 2024 Assessment & Plan (1) Hematuria: (2) Terrazas catheter in place: (3) Anxiety: Plan Pt is a 73 yo male with PMH of BPH (requiring chronic terrazas cath since Apr 2023) and anxiety presenting to the hospital d/t concerns with his terrazas catheter. Hematuria - suspect secondary to trauma from terrazas replacement; pt not on blood thinners at home - lab work significant for no leukocytosis, Hgb 11.6, CMP WNL - pt with previous urine culture 02/16 growing pansensitive enterococcus (except for cipro); pt given unasyn in ED- will continue on admission - will trend Hgb - will continue home finasteride 5 mg daily and doxazosin 4 mg daily (or formulary equivalent) - urology consulted for further evaluation and management --> No plan for surgical intervention at this time. OK for diet today. -->Will make NPO at midnight and reassess in the morning. Anxiety - continue buspirone 5 mg BID PRN Diet: NPO VTE ppx: defer in setting of hematuria Code: full Dispo: admit to med/surg Admission and Anticipated Discharge Date Admission Date: February 23, 2024 Supervising Physician Co-Signing Physician Notes I personally examined the patient and verified sloan points of history and exam, discussed case, and agree with decision making and plan documented by Dr. Ovalle. Patient undergoing continuous bladder irrigation, draining pink. Reviewed CT scan results. Will coordinate next steps with urology. Subjective Pt seen at bedside this morning in no acute distress. Patient has chronic urinary retention 2/2 BPH and a chronic indwelling terrazas catheter. Patient reports that he was on a trip to [place] and on his way back he noticed hematuria and decreased drainage from his catheter. Patient went to local ED at the time and had Terrazas exchanged requiring multiple attempts for proper placement. After this patient headed back home but noted continued hematuria and reduced drainage of his terrazas. Patient then presented to [facility] and found to have many clots within bladder causing blockages along his terrazas. A 3 way catheter was placed with continuous bladder irrigation with relief of bladder discomfort and his clots were flushed. When seen this morning patient does not have any abdominal pain or flank pain and denies fever, chills, chest pain, palpitations, tightness, SOB, cough, wheeze. Terrazas intact and draining pink tinged urine with CBI on moderate rate. Nursing hand irrigated this morning with removal of clot. Denies suprapubic pain/pressure. Patient off of NPO status as of this afternoon, will receive lunch and dinner. Physical Exam Physical Exam: General: patient resting comfortably, NAD, non-toxic in appearance, answers questions appropriately. Skin: warm, dry, intact HEENT: NC/AT, anicteric sclera, conjunctiva without injection, moist mucus membranes. Heart: +S1/S2, regular, no m/r/g Lungs: equal air entry bilaterally, no rales/rhonchi/wheezes Abd: +BS, soft, NT/ND Ext: warm, no clubbing/cyanosis or edema, Kinsey's neg. Neuro: nonfocal, speech intact, no facial droop, moving all extremities. Results & Data Results & Data Vital Signs (Past 12 Hours) Vital Signs Temp Pulse Pulse Resp BP BP Pulse Ox 02/23/24 11:17 36.7 C 61 18 134/72 97 02/23/24 07:35 36.5 C 84 18 188/86 H 94 O2 Del Method 02/23/24 11:17 Room Air 02/23/24 07:35 Room Air Resident Activity Tracking Resident Involvement: Resident Care Provided Care Provided: Adult Hospital Medicine
[2024-02-23] MEDS: DOXAZosin MESYLATE 4 MG TAB PO SCH (20:07)
--- NOTE | 2024-02-24 11:35 | Urology Progress Note ---
Date of Service February 24, 2024 Assessment & Plan (1) Hematuria: (2) UTI (urinary tract infection): Plan - Follow-up for gross hematuria - Pt afebrile and hemodynamically stable - Urine culture pending. Urine culture 02/16 grew Enterococcus. On Unasyn. - On exam this morning, the catheter was not draining. I manually irrigated at bedside with removal of a small amount of clot. Pt tolerated well. CBI restarted on slow rate and catheter is now draining pink tinged urine without clot. - Continue to monitor urine output. Ok to hand irrigate as needed for clots/obstruction, retention, suprapubic pain. - Continue antibiotics and tailor per culture sensitivities - No plan for intervention. OK for diet. - Urology will follow along. Admission and Anticipated Discharge Date Admission Date: February 23, 2024 Supervising Physician Co-Signing Physician Notes Discussed patient with WALESKA. Agree with plan. Subjective Patient seen at bedside today. Awake and resting in bed on arrival. No acute distress. At the time of my visit, the catheter did not appear to be draining well. Patient denied any pain or discomfort. Has not required manual irrigation by nursing staff. Review of Systems Constitutional: as per Subjective / HPI Genitourinary: + as per Subjective / HPI Physical Exam Constitutional: no acute distress Respiratory: no respiratory distress and no labored breathing Neurologic: moves all extremities and awake Psychiatric: A+Ox3, euthymic affect Genitourinary: Duff intact w/CBI Results & Data Vital Signs (Past 12 Hours) Vital Signs Temp Pulse Resp BP Pulse Ox O2 Del Method 02/24/24 07:37 36.6 C 68 16 135/64 98 Room Air PG Care Time/CCT Total # of Minutes Spent Total Time Spent with Patient: Total time spent is greater than 50% in coordination of care (as documented) at patient's floor/unit and/or counseling patient: Coding Level of Care Code 24397 SUB INP/OBS CARE 2/35MIN Diagnoses Hematuria R31.9 UTI (urinary tract infection) N39.0
--- NOTE | 2024-02-24 16:47 | Hospitalist Progress Note ---
Date of Service February 24, 2024 Assessment & Plan (1) Hematuria: (2) Terrazas catheter in place: (3) Anxiety: Plan Pt is a 73 yo male with PMH of BPH (requiring chronic terrazas cath since Apr 2023) and anxiety presenting to the hospital d/t concerns with his terrazas catheter. Hematuria - suspect secondary to trauma from terrazas replacement; pt not on blood thinners at home - lab work significant for no leukocytosis, Hgb 11.6, CMP WNL - pt with previous urine culture 02/16 growing pansensitive enterococcus (except for cipro); pt given unasyn in ED- will continue on admission - will trend Hgb - will continue home finasteride 5 mg daily and doxazosin 4 mg daily (or formulary equivalent) - urology consulted for further evaluation and management --> No plan for surgical intervention at this time. OK for diet today. -->Will make NPO at midnight and reassess in the morning. - Patient still draining pink to red urine with clots removed this AM (02/23) - Urology plans to clamp tonight or tomorrow morning and reassess Anxiety - continue buspirone 5 mg BID PRN Diet: NPO VTE ppx: defer in setting of hematuria Code: full Dispo: admit to med/surg Admission and Anticipated Discharge Date Admission Date: February 23, 2024 Supervising Physician Co-Signing Physician Notes I personally examined the patient and verified sloan points of history and exam, discussed case, and agree with decision making and plan documented by Dr. Ovalle. Patient remains on continuous bladder irrigation, draining pink-tinged urine, occasional need for manual evacuation of clot per report. Patient denies any pain. Will continue antibiotics. Anticipate discharge with clinical improvement. Subjective Patient seen at bedside today. Patient denies chest pain/palpitations, SOB, cough wheeze, abdominal pain, nausea, or vomiting. Catheter adjusted by urology this am to improve drainage. Will continue CBI with plans to clamp tonight or tomorrow morning. Patient condition stable. Physical Exam Physical Exam: General: patient resting comfortably, NAD, non-toxic in appearance, answers questions appropriately. Skin: warm, dry, intact HEENT: NC/AT, anicteric sclera, conjunctiva without injection, moist mucus membranes. Heart: +S1/S2, regular, no m/r/g Lungs: equal air entry bilaterally, no rales/rhonchi/wheezes Abd: +BS, soft, NT/ND Ext: warm, no clubbing/cyanosis or edema, Kinsey's neg. Neuro: nonfocal, speech intact, no facial droop, moving all extremities. Results & Data Results & Data Vital Signs (Past 12 Hours) Vital Signs Temp Pulse Resp BP BP Pulse Ox O2 Del Method 02/24/24 15:16 37 C 77 16 109/61 96 Room Air 02/24/24 07:37 36.6 C 68 16 135/64 98 Room Air Resident Activity Tracking Resident Involvement: Resident Care Provided Care Provided: Adult Hospital Medicine
[2024-02-24] MEDS: CALCIUM CARBONATE 500 MG CHEWABLE TAB PO PRN (22:01)
--- NOTE | 2024-02-25 07:55 | Urology Progress Note ---
Date of Service February 25, 2024 Assessment & Plan (1) Hematuria: (2) UTI (urinary tract infection): Plan - Follow-up for gross hematuria - Pt afebrile and hemodynamically stable - Urine culture pending. Urine culture 02/16 grew Enterococcus. On Unasyn. - CBI clamped this morning, nursing aware. Will reassess later today. - Continue to monitor urine output. Ok to hand irrigate as needed for clots/obstruction, retention, suprapubic pain. - Continue antibiotics and tailor per culture sensitivities - No plan for intervention. - Urology will follow. - Pt reassessed this afternoon - On arrival, he had minimal output from the catheter and was reporting bladder spasms. - Duff catheter was manually irrigated at bedside with removal of a few small clots/debris. Pt tolerated well. Catheter flushed without issue and was draining pink tinged urine. - Continue to monitor urine output. Ok to hand irrigate as needed for clots/obstruction, retention, suprapubic pain. - Continue antibiotic therapy. - Urology will follow along. Admission and Anticipated Discharge Date Admission Date: February 23, 2024 Subjective Pt seen at bedside this AM. Awake and resting in bed on arrival. No acute distress. Duff draining pink tinged urine with CBI on slow drip. He has not required hand irrigation since yesterday. No fevers. Denies suprapubic pain/pressure. Review of Systems Constitutional: as per Subjective / HPI Genitourinary: + as per Subjective / HPI Physical Exam Constitutional: no acute distress Respiratory: no respiratory distress and no labored breathing Neurologic: moves all extremities and awake Psychiatric: A+Ox3, euthymic affect Genitourinary: Duff intact w/CBI Results & Data Vital Signs (Past 12 Hours) Vital Signs Temp Pulse Resp BP Pulse Ox O2 Del Method 02/25/24 07:30 36.8 C 66 16 117/67 94 Room Air PG Care Time/CCT Total # of Minutes Spent Total Time Spent with Patient: Total time spent is greater than 50% in coordination of care (as documented) at patient's floor/unit and/or counseling patient: Coding Level of Care Code 67769 SUB INP/OBS CARE 2/35MIN Diagnoses Hematuria R31.9 UTI (urinary tract infection) N39.0
[2024-02-25 14:19] VITALS: BP 117/64; PULSE 74; RESP 18; TEMP 98.1; O2SAT 97
--- NOTE | 2024-02-25 16:37 | Discharge Summary ---
Date of Service February 25, 2024 Admission HPI Per Admitting Provider Pt is a 73 yo male with PMH of BPH (requiring chronic terrazas cath since Apr 2023) and anxiety presenting to the hospital d/t concerns with his terrazas catheter. Pt was on his way home from [place] today when his terrazas stopped draining. He stopped at an outside ER where his terrazas was irrigated and replaced with subsequent proper drainage. Pt then noted blood in his catheter bag a few hours later. He has not had any prior issues with his catheter which has been in place since Apr d/t urinary retention secondary to BPH- his catheter is typically changed monthly with [facility]. He previously saw a doctor with [facility] for tx of his prostate but he notes this doc went on medical leave and he has not had any other evaluation in terms of definitive tx. In the ER, his catheter was irrigated. Pt was also given unasyn x1. Principal Diagnosis Hematuria, Catheter obstruction Discharge Exam General: patient resting comfortably, NAD, non-toxic in appearance, answers questions appropriately. Skin: warm, dry, intact HEENT: NC/AT, anicteric sclera, conjunctiva without injection, moist mucus membranes. Heart: +S1/S2, regular, no m/r/g Lungs: equal air entry bilaterally, no rales/rhonchi/wheezes Abd: +BS, soft, NT/ND Ext: warm, no clubbing/cyanosis or edema, Kinsey's neg. Neuro: nonfocal, speech intact, no facial droop, moving all extremities. Discharge Data Allergies Allergy/AdvReac Type Severity Reaction Status Date / Time prednisolone AdvReac Intermediate CHEST PAIN Verified 02/24/24 16:55 "FELT LIKE HAVING A HEART ATTACK". sulfamethoxazole AdvReac Intermediate MUSCLE Verified 02/24/24 16:55 [From Bactrim] WEAKNESS trimethoprim [From Bactrim] AdvReac Intermediate MUSCLE Verified 02/24/24 16:55 WEAKNESS Consultations 02/23/24 00:35 ED Decision to Admit Stat 02/23/24 01:08 Consult Urology Routine Ordered Studies 02/23/24 10:57 CT abd pelvis wo con Urgent Laboratory Results WBC 5.58 K/ul (4.8-10.8) 02/23/24 05:47 RBC 3.68 M/uL (4.70-6.10) L 02/23/24 05:47 Hgb 11.3 g/dl (14.0-18.0) L 02/23/24 05:47 Hct 33.7 % (42.0-52.0) L 02/23/24 05:47 MCV 91.6 fL (80.0-100.0) 02/23/24 05:47 MCH 30.7 pg (25.0-34.0) 02/23/24 05:47 MCHC 33.5 g/dL (32.0-36.0) 02/23/24 05:47 RDW Std Deviation 47.8 fL (36.4-46.3) H 02/23/24 05:47 RDW Coeff of Dave 14.1 % (11.5-14.5) 02/23/24 05:47 Plt Count 220 K/uL (130-400) 02/23/24 05:47 MPV 10.2 fL (9.4-12.4) 02/23/24 05:47 Immature Gran % (Auto) 0.4 % 02/23/24 05:47 Neut % (Auto) 62.4 % 02/23/24 05:47 Lymph % (Auto) 26.5 % 02/23/24 05:47 Coke % (Auto) 8.4 % 02/23/24 05:47 Eos % (Auto) 1.8 % 02/23/24 05:47 Baso % (Auto) 0.5 % 02/23/24 05:47 Neut # (Auto) 3.48 K/uL (1.40-6.50) 02/23/24 05:47 Lymph # (Auto) 1.48 K/uL (1.20-3.40) 02/23/24 05:47 Coke # (Auto) 0.47 K/uL (0.11-0.59) 02/23/24 05:47 Eos # (Auto) 0.10 K/uL (0.00-0.50) 02/23/24 05:47 Baso # (Auto) 0.03 K/uL (0.00-0.20) 02/23/24 05:47 Immature Gran # (Auto) 0.02 K/uL (0.01-0.20) 02/23/24 05:47 PT 11.7 Seconds (9.0-12.0) 02/22/24 23:45 INR 1.1 (0.9-1.1) 02/22/24 23:45 APTT 28 Seconds (21-31) 02/22/24 23:45 PTT Ratio 1.0 02/22/24 23:45 Sodium 141 mmol/L (136-145) 02/23/24 05:47 Potassium 3.5 mmol/L (3.5-5.1) 02/23/24 05:47 Chloride 108 mmol/L (98-107) H 02/23/24 05:47 Carbon Dioxide 28 mmol/L (21-32) 02/23/24 05:47 Anion Gap 5 (3-11) 02/23/24 05:47 BUN 17 mg/dl (6-23) 02/23/24 05:47 Creatinine 0.80 mg/dl (0.6-1.4) 02/23/24 05:47 Est Cr Clr Drug Dosing 80.9 ml/min 02/23/24 05:47 eGFR 92.29 02/23/24 05:47 BUN/Creatinine Ratio 21.3 (10-20) H 02/23/24 05:47 Glucose 94 mg/dl (70-99(Fasting)) 02/23/24 05:47 POC Glucose 94 mg/dl (70-99) 02/24/24 07:31 Calcium 8.4 mg/dl (8.6-10.3) L 02/23/24 05:47 Total Bilirubin 0.6 mg/dl (0.2-1.0) 02/22/24 23:45 AST 18 U/L (13-39) 02/22/24 23:45 ALT 13 U/L (7-52) 02/22/24 23:45 Alkaline Phosphatase 55 U/L (34-104) 02/22/24 23:45 Total Protein 6.1 gm/dl (6.0-8.3) 02/22/24 23:45 Albumin 3.7 gm/dl (3.4-5.0) 02/22/24 23:45 Globulin 2.4 gm/dl (2.5-4.0) L 02/22/24 23:45 Albumin/Globulin Ratio 1.5 (0.9-2) 02/22/24 23:45 Urine Color See Comment 02/22/24 22:00 Urine Appearance Turbid (Clear) A 02/22/24 22:00 Urine pH Not Reportable 02/22/24 22:00 Ur Specific [place] 1.014 (1.000-1.030) 02/22/24 22:00 Urine Protein Not Reportable 02/22/24 22:00 Urine Glucose (UA) Not Reportable 02/22/24 22:00 Urine Ketones Not Reportable 02/22/24 22:00 Urine Blood Not Reportable 02/22/24 22:00 Urine Nitrite Not Reportable 02/22/24 22:00 Urine Bilirubin Not Reportable 02/22/24 22:00 Urine Urobilinogen Not Reportable 02/22/24 22:00 Ur Leukocyte Esterase Not Reportable 02/22/24 22:00 Urine RBC >20 /hpf (0-2) H 02/22/24 22:00 Urine WBC 6-10 /hpf (0-5) H 02/22/24 22:00 Ur Epithelial Cells 0-2 /hpf (0-2) 02/22/24 22:00 Urine Bacteria None Seen (None Seen) 02/22/24 22:00 Impressions Abdomen/Pelvis CT 02/23/24 10:57 CT OF THE ABDOMEN AND PELVIS WITHOUT CONTRAST CLINICAL HISTORY: Gross hematuria. COMPARISON STUDY: CT of the abdomen and pelvis September 23, 2011. Prostate MRI July 29, 2022. KUB February 02, 2024. TECHNIQUE: Axial images of the abdomen and pelvis were obtained without IV contrast. Images were reviewed in the axial, sagittal, and coronal planes. Automated exposure control was utilized for the study. A dose lowering technique was utilized adhering to the principles of ALARA. FINDINGS: Lung bases are unremarkable. No pneumatosis, free air or portal venous gas is present. There is no hydronephrosis. Dilatation of the distal bilateral ureters is similar to CT of September 23, 2011 and prostate MRI of July 29, 2022. 2 calcifications within lower pole of the right kidney measure up to 4 mm. The larger calcification was present on prior CT of September 23, 2011. There are no ureteral calculi. There are no bladder calculi. A Terrazas balloon within the bladder is present. There is moderate clot within the bladder. Moderate to marked enlargement of the prostate is again noted. The prostate indents the base of the bladder. There is no abdominal or pelvic lymphadenopathy. Water attenuation left renal lesions favor cysts. An intermediate attenuation 2.7 cm segment 7 hepatic lesion on image 70 of 349 is unchanged since prior CT. This represents a hemangioma. A smaller adjacent lesion is also unchanged. A 2.3 cm intermediate attenuation segment 4 lesion on image 97 is new since that exam. There is no evidence for a bowel obstruction. The appendix is normal. There are no fluid collections. Trace fluid within the pelvis is present. There are postoperative findings from bilateral inguinal hernia repairs. IMPRESSION: 1. No ureteral calculi or hydronephrosis. Two small calcifications within the inferior right renal sinus which could represent nonobstructing calculi or vascular calcifications. 2. No change in dilatation of the distal ureters from prior exams. This is likely chronic. 3. Moderate clot within the bladder. An underlying bladder mass cannot be excluded but is not visualized on this study. Terrazas in place. Moderate to marked enlargement of the prostate which indents the base of the bladder. 4. 2.3 cm intermediate attenuation segment 4 hepatic lesion. This lesion is new since CT of September 23, 2011 but likely reflects a hemangioma. Nonemergent right upper quadrant ultrasound is recommended. The additional right hepatic lobe lesion was shown to represent a hemangioma on prior CT. ACT 112: Negative or not required by law. Electronically signed by: Ed Douglas M.D. 02/23/2024 12:48 PM Hospital Course (1) Hematuria: (2) Terrazas catheter in place: (3) Anxiety: Plan Pt is a 73 yo male with PMH of BPH (requiring chronic terrazas cath since Apr 2023) and anxiety presenting to the hospital d/t concerns with his terrazas catheter. Hematuria - suspect secondary to trauma from terrazas replacement; pt not on blood thinners at home - lab work significant for no leukocytosis, Hgb 11.6, CMP WNL - pt with previous urine culture 02/16 growing pansensitive enterococcus (except for cipro); pt given unasyn in ED- will continue on admission - will trend Hgb - will continue home finasteride 5 mg daily and doxazosin 4 mg daily (or formulary equivalent) - urology consulted for further evaluation and management --> No plan for surgical intervention at this time. OK for diet today. -->Will make NPO at midnight and reassess in the morning. - Patient still draining pink to red urine with clots removed this AM (02/23) - Urology plans to clamp tonight or tomorrow morning and reassess - Patient educated on how to flush catheter when blocked via debris and urine is now clear per urology - Will discharge on Augmentin 875mg BID for 5 days Anxiety - continue buspirone 5 mg BID PRN Diet: NPO VTE ppx: defer in setting of hematuria Code: full Dispo: admit to med/surg Total Time Total Time Spent Total Time Spent (In Minutes): 28 min Total Time Includes: Examination of the Patient, Discharge Planning, Communication With Other Providers and Other Discharge Plan Discharge Items Patient Disposition: Home - Self-Care Reason For Visit: HEMATURIA Discharge Diagnosis: Hematuria, BPH Condition on Discharge: Good Activity: Per Instructions section Non-emergency contact: Primary Care Provider and Urologist Call non-emergency contact if: your symptoms worsen and your pain is not controlled Follow-up/Referrals: James Baez MD [Primary Care Provider] - Diet: Regular Addtl Attending Provider Instructions: You were admitted to the hospital for acute urinary retention and hematuria. This occurred after your terrazas was obstructed after a road trip to the [place] leading you to need a Terrazas placed at an outside hospital. After due to increased bleeding and ongoing retention you were admitted at [facility]. You were treated with a 3 way catheter and continuous bladder irrigation as well as antibiotics. Although your catheter at times was not draining, it was irrigated and is draining clear urine at this time. You were also educated by urology on terrazas management and how to flush it in the event of another obstruction. A discharge summary will be sent to your primary care physician to ensure continuity of care. Please bring this discharge summary with you to your next office appointment so that your provider can review it at that time. Follow-up appointments: Make a follow-up appointment with your PCP within the next week. It is very important that you follow up with them shortly after discharge from the [facility]. Medications: Your medication list has been reviewed and reconciled upon discharge to ensure accuracy and continuity of care. An updated list of all your medications is included with your hospital discharge paperwork. Please review this list closely, and make note of any changes. We sent a new medication called Augmentin to your pharmacy. Take Augmentin 875 mg one tablet TWICE daily for the next 5 days approximately 12 hours apart per dose. If you have any issues filling these prescriptions, please call [phone] and ask to leave a message for Dr. Ricky Ovalle. Take your medications as instructed; do not skip a dose of your medicines. Make sure all of your doctors know every medicine you are taking (including gefs-kfw-gjqiwhm medicines, vitamins, and supplements). Call your primary care provider before taking any new medicines (including jzzk-tju-eyquaog medicines, vitamins, and supplements), because some of these may interact with your current medications, or may make your symptoms worse. Tell your primary care provider if you cannot afford your medications. CONTACT YOUR PRIMARY CARE PROVIDER if you experience any of the following: Difficulty following your treatment plan, or difficulty taking medications CALL 911 OR GO TO THE EMERGENCY DEPARTMENT if you experience any of the following: Sudden, severe abdominal pain or nausea/vomiting Severe chest pain, or chest pain that radiates (moves) to your jaw or arm Sudden, severe shortness of breath or difficulty breathing Thank you for allowing us to participate in your care. Pending Studies at Discharge: No Stand-Alone Forms: My [facility] [employer], Smoking Cessation Medications and DC Order Prescriptions: New amoxicillin-pot clavulanate 875-125 mg tablet 1 tab PO BID Qty: 10 0RF Rx Instructions: Please take Augmentin 875mg twice daily for the next 5 days, for a total of 10 doses over the next 5 days. Continued doxazosin 4 mg tablet 4 mg PO QPM Qty: 90 3RF finasteride 5 mg tablet 5 mg PO DAILY Qty: 90 3RF buspirone 5 mg tablet 5 mg PO BID PRN (Reason: anxiety) Qty: 30 0RF multivitamin Tablet 1 tab PO DAILY fluticasone propionate [Flonase Allergy Relief] 50 mcg/actuation spray,suspension 1 spray intranasal DAILY PRN (Reason: Congestion) Rx Instructions: administer into each nostril cyanocobalamin (vitamin B-12) [Vitamin B-12] 1,000 mcg Tablet 1,000 mcg PO DAILY aspirin 81 mg Tablet,Delayed Release (Dr/Ec) 81 mg PO DAILY acetaminophen 500 mg Tablet 500 mg PO Q6H PRN (Reason: Pain) ibuprofen 200 mg Tablet 200 mg PO Q6H PRN (Reason: Pain) cholecalciferol (vitamin D3) [Vitamin D3] 25 mcg (1,000 unit) Tablet 25 mcg PO DAILY Discharge Orders: Discharge Order (Routine); Ordered 02/25/24 Ordered By: Ricky Song/Other Patient Handouts: Urinary Tract Infections in Men, ED Terrazas Catheter, Care Admission Data Admit Date/Time: 02/23/24 01:09 Attending Provider: Kacie Nobles Admit Provider: Ellen Kaur Primary Care Provider: James Baez V. Other Providers: Kike Almanza; Toya Capellan Other Interventions: Discharge Summary Assessment (RN) Last Done: 02/25/24 17:24 Supervising Physician Co-Signing Physician Notes I personally examined the patient and verified sloan points of history and exam, discussed case, and agree with decision making and plan documented by Dr. Ovalle. Patient on admission for [place] hematuria likely due to traumatic Terrazas replacement. Patient with improvement of hematuria after continuous bladder irrigation. Augmentin prescribed to complete 7 day course. Prior to discharge, patient was taught how to self irrigate catheter as needed by urology, he will follow-up with them outpatient. Resident Activity Tracking Resident Involvement: Resident Care Provided Care Provided: Adult Hospital Medicine
== END 2024-02-25 18:22 | disposition home or self-care (01) | DRG 699 ==
LOC: ED 21:06 → SUATTDRO 02-23 01:09 → EDINP 02-23 01:09 → 3W 02-23 02:04